=== PATIENT | female | born 1960 | race Caucasian/White ===

== ENCOUNTER 2017-05-11 13:41 | Emergency (ER) | payer OTHER ==
[~2017-05-11] VITALS: Ht 182.9 cm; Wt 99.8 kg
[2017-05-11 17:25] VITALS: BP 132/77
== END 2017-05-11 17:27 | disposition home or self-care (01) ==
LOC: EME 13:41
DX: S09.90XA Unspecified injury of head, initial encounter (principal); W20.8XXA Other cause of strike by thrown, projected or falling object, initial encounter; Y99.0 Civilian activity done for income or pay; Z87.820 Personal history of traumatic brain injury
CPT/HCPCS: 70450; 99281; 99284